=== PATIENT | male | born 1950 | race Caucasian/White ===

== ENCOUNTER 2017-04-05 15:47 | Emergency (ER) | payer OTHER ==
[~2017-04-05] VITALS: Ht 182.9 cm; Wt 81.8 kg
[2017-04-05] MEDS ORDERED: PERCOCET 5/31 TABLET PO (19:52)
[2017-04-05 20:10] VITALS: BP 140/70
== END 2017-04-05 20:11 | disposition home or self-care (01) ==
LOC: EME 15:47
PROC: 2W3QX1Z Immobilization of Right Lower Leg using Splint (ICD-10-PCS; principal; 2017-04-05)
DX: S92.011A Displaced fracture of body of right calcaneus, initial encounter for closed fracture (principal); W17.89XA Other fall from one level to another, initial encounter; M19.071 Primary osteoarthritis, right ankle and foot
CPT/HCPCS: 73610; 73650; 73700; 99281; 99283